=== PATIENT | female | born 1955 | race Caucasian/White ===

== ENCOUNTER → 2023-04-01 07:07 | Outpatient (REF) | payer BC, SELFPAY ==
[2023-04-01 07:40] VITALS: BP 164/66; BP_SYST 90
[2023-04-01 07:43] LABS: Hematocrit 32.2 % (37.0-47.0); Hemoglobin 10.2 g/dL (12.0-16.0); Mean Corp Hgb Conc. 31.7 g/dL (33.0-37.0); Mean Corpuscular Hgb 28.7 pg (27.0-31.0); Mean Corpuscular Volume 90.7 fL (81.0-99.0); Nucleated Red Blood Cells % 0.1 %; Platelet Count 115 10^3/uL (130-400); Red Blood Cell Count 3.55 10^6/uL (4.20-5.40); Red Cell Dist. Width 21.4 % (11.5-14.5); White Blood Cell Count 34.5 10^3/uL (4.8-10.8)
[2023-04-01 07:45] LABS: INR 1.04; PT 13.8 Sec (11.4-14.6)
--- NOTE | 2023-04-01 08:12 | PTCARENOTE ---
0730 Patient ambulatory to IR, requesting to use bathroom. States stomach has been 'upset' for last few days
[2023-04-01 09:10] VITALS: BP 124/55; BP_SYST 98
[2023-04-01 09:54] LABS: Absolute Neutrophils -Man Diff 23.8 10^3/uL (1.4-6.5); Band Neutrophils 8 % (0-3); Lymphocytes 8 % (20-51); Metamyelocytes 6 % (-); Monocytes 9 % (2-9); Myelocytes 6 % (-); Platelets Checked Yes; Promyelocytes 2 % (-); Segmented Neutrophils 61 % (42-75)
[2023-04-01 09:55] LABS: Normal RBC Morphology Yes; Total Cells Counted 100
[2023-04-01 10:30] VITALS: BP 124/55
== END ==
LOC: RADI 07:07
PROVIDERS: ATTENDING PHYSICIAN Internal Medicine Hematology & Oncology
DX: D46.9 Myelodysplastic syndrome, unspecified (principal); Z01.812 Encounter for preprocedural laboratory examination; Z01.818 Encounter for other preprocedural examination
CPT/HCPCS: 88305; 88311; 88312; 36415; 38222; 77012; 85025; 85610; 88313; 88341; 88342